=== PATIENT | male | born 1955 | race Caucasian/White ===

== ENCOUNTER 2021-08-05 00:19 | Inpatient (IN) | payer OTHER ==
--- OUTSIDE RECORDS SUMMARY | 2021-08-05 00:21 | XMS REPORT | Continuity of Care Document ---
:1955 Author Organization [facility] t Address [address] [place] [address] [address]. [address] [place] [address] Care Team Providers Name Role Phone MARTA Attending Clinician Unavailable Zay SANCHEZ Attending Clinician Lab, Fam Pob I Attending Clinician Unavailable Laurita MARIE Attending Clinician Unavailable Laurita MARIE Admitting Clinician Unavailable Payers Payer Name Policy Type Policy Number Effective Date Expiration Date Laverne MICHEL O [id number] 2018 00:00:00 Problems This patient has no known problems. Allergies, Adverse Reactions, Alerts Allergy Allergy Status Severity Reaction(s) Onset Inactive Treating Comm ents Source Name Type Date Date Clinician NO KNOWN Drug Active [facility] ALLERGIE Class [facility] Medications This patient has no known medications. Procedures This patient has no known procedures. Encounters Start End Encounter Admission Attending Care Care Encounter Source Date/Time Date/Time Type Type Clinicians Facility Department ID 2020-05-17 2020-05-17 Outpatient [facility] [id number] Univers 14:55:00 14:55:00 [facility] 2020-04-19 2020-04-19 Outpatient [facility] [id number] Univers 14:50:00 14:50:00 [facility] 2020-01-26 2020-01-26 Outpatient R [facility] [id number] Univers 12:40:00 12:40:00 [id number] [facility] 2020-01-26 2020-01-26 Outpatient R MARTA [facility] [id number] Univers 12:40:00 12:40:00 GRAY [facility] 2019-09-05 2019-09-05 Telephone Zay [facility] [id number] 00:00:00 00:00:00 [facility] [id number] [place] [id number] [facility] [id number] Primary & 370 Specialty Care 2019-09-04 2019-09-04 Laboratory Lab, [facility] [id number] 13:09:16 13:29:16 Only [facility]am [facility] [id number] [place] [id number] [facility] [id number] nal [address] 2019-09-04 2019-09-04 Outpatient R [facility] [id number] -[id number] Univers 13:20:00 13:20:00 [id number] ity [facility] 2019-09-04 2019-09-04 Outpatient R [facility] [id number] Univers 13:20:00 [facility]:20:[facility] 2018-12-27 2018-12-27 Outpatient R ALISHA MARIE [facility] [id number] Univers 07:07:42 23:59:00 [facility] Results This patient has no known results.
[2021-08-05 01:12] LABS: Absolute Lymphocytes (CBC) 5.5 K/uL (0.7-4.9); Hematocrit 48.2 % (39.6-49.0); Lymphocytes % 38.4 % (15.3-44.8); MPV 9.9 fL (7.6-11.3); RBC Red Blood Cell Count 5.05 M/uL (4.33-5.43)
[2021-08-05 01:27] LABS: Potassium 3.5 mmol/L (3.5-5.1); Troponin High Sensitivity 16.3 pg/mL (<58.9)
--- NOTE | 2021-08-05 03:13 | EDPHYS ---
Physician Documentation [facility] Name: Stevenson Marie Age: 65 yrs Sex: Male : 1955 Arrival Date: 08/05/2021 Time: 00:26 Bed 25 Private MD: ED Physician Romel Collins HPI: 08/05 07:43 This 65 yrs old Male presents to ER via EMS with complaints of Syncope. kdr 07:43 The patient has experienced syncope, became unresponsive, Patient had a syncopal kdr episode prior to arrival this morning. According to his , he was sitting talking with her when he suddenly sounds with his mouth and then his head went back and he was completely unresponsive. People who were around him began to perform sort of CPR while the patient was sitting. Patient then came back around and seemed confused and disoriented. Few minutes later the episode repeated itself that time EMS was called. Patient again recovered consciousness and has had no further problems. Onset: The symptoms/episode began/occurred suddenly, just prior to arrival. Duration: The patient has had multiple episodes, that last 45 second(s). Context: the episode(s) was witnessed, by family, occurred at home, occurred while the patient was at rest, sitting. Associated injury: The patient did not suffer any apparent associated injury. Associated signs and symptoms: The patient has no apparent associated signs or symptoms. Current symptoms: Currently, the patient is not experiencing any symptoms. The patient has not experienced similar symptoms in the past. The patient has not recently seen a physician. Historical: - Allergies: 00:29 No Known Allergies; sm5 - Home Meds: 00:29 nifedipine 60 mg Oral TbER 1 tab once daily for Hypertension [Active]; glipizide 5 mg sm5 Oral tab 1 tab 2 times per day [Active]; anastrozole 1 mg oral tab 0.5 tab once daily [Active]; Methylphenidate 63mg Oral [Active]; - PMHx: 00:29 CVA; Hypertension; sm5 - Immunization history:: Client reports receiving the 2nd dose of the Covid vaccine. - Social history:: Smoking status: Patient reports the use of cigarette tobacco products, denies chronic smoking, but will smoke occasionally, Patient uses alcohol. ROS: 07:43 Constitutional: Negative for fever, chills, and weight loss, Eyes: Negative for injury, kdr pain, redness, and discharge, Neck: Negative for injury, pain, and swelling, Cardiovascular: Negative for chest pain, palpitations, and edema, Respiratory: Negative for shortness of breath, cough, wheezing, and pleuritic chest pain, Abdomen/GI: Negative for abdominal pain, nausea, vomiting, diarrhea, and constipation, Back: Negative for injury and pain, : Negative for injury, bleeding, discharge, and swelling, MS/Extremity: Negative for injury and deformity, Skin: Negative for injury, rash, and discoloration, Psych: Negative for depression, anxiety, suicide ideation, homicidal ideation, and hallucinations, Allergy/Immunology: Negative for hives, rash, and allergies, Endocrine: Negative for neck swelling, polydipsia, polyuria, polyphagia, and marked weight changes, Hematologic/Lymphatic: Negative for swollen nodes, abnormal bleeding, and unusual bruising. 07:43 Neuro: Positive for loss of consciousness, syncope. Exam: 07:43 Constitutional: This is a well developed, well nourished patient who is awake, alert, kdr and in no acute distress. Head/Face: Normocephalic, atraumatic. Eyes: Pupils equal round and reactive to light, extra-ocular motions intact. Lids and lashes normal. Conjunctiva and sclera are non-icteric and not injected. Cornea within normal limits. Periorbital areas with no swelling, redness, or edema. Neck: Trachea midline, no thyromegaly or masses palpated, and no cervical lymphadenopathy. Supple, full range of motion without nuchal rigidity, or vertebral point tenderness. No Meningismus. Chest/axilla: Normal chest wall appearance and motion. Nontender with no deformity. No lesions are appreciated. Cardiovascular: Regular rate and rhythm with a normal S1 and S2. No gallops, murmurs, or rubs. Normal PMI, no JVD. No pulse deficits. Respiratory: Lungs have equal breath sounds bilaterally, clear to auscultation and percussion. No rales, rhonchi or wheezes noted. No increased work of breathing, no retractions or nasal flaring. Abdomen/GI: Soft, non-tender, with normal bowel sounds. No distension or tympany. No guarding or rebound. No evidence of tenderness throughout. Back: No spinal tenderness. No costovertebral tenderness. Full range of motion. Skin: Warm, dry with normal turgor. Normal color with no rashes, no lesions, and no evidence of cellulitis. MS/ Extremity: Pulses equal, no cyanosis. Neurovascular intact. Full, normal range of motion. Neuro: Awake and alert, GCS 15, oriented to person, place, time, and situation. Cranial nerves II-XII grossly intact. Motor strength 5/5 in all extremities. Sensory grossly intact. Cerebellar exam normal. Normal gait. Psych: Awake, alert, with orientation to person, place and time. Behavior, mood, and affect are within normal limits. Vital Signs: 00:27 BP 131 / 87; Pulse 91; Resp 20; Temp 98(O); Pulse Ox 98% on R/A; Weight 110.45 kg; [facility] Height 6 ft. 1 in. (185.42 cm); Pain 0/10; 00:48 BP 148 / 88; Pulse 86; Resp 17; Pulse Ox 99% on R/A; lp1 02:12 BP 141 / 83; Pulse 84; Resp 15; Pulse Ox 98% on R/A; lp1 03:45 BP 149 / 90; Pulse 77; Resp 17; Pulse Ox 95% on R/A; lp1 05:20 BP 128 / 74; Pulse 74; Resp 15; Pulse Ox 95% on R/A; lp1 06:00 BP 104 / 63; Pulse 75; Resp 14; Pulse Ox 94% on R/A; lp1 06:30 BP 115 / 66; Pulse 74; Resp 13; Pulse Ox 95% on R/A; lp1 00:27 Body Mass Index 32.13 (110.45 kg, 185.42 cm) [facility] MDM: 03:12 Patient medically screened. kdr 07:43 Data reviewed: vital signs, nurses notes, lab test result(s), radiologic studies. kdr Counseling: I had a detailed discussion with the patient and/or guardian regarding: the historical points, exam findings, and any diagnostic results supporting the discharge/admit diagnosis, lab results, radiology results, the need for outpatient follow up. 08/05 00:38 Order name: Basic Metabolic Panel; Complete Time: 02:11 kdr 08/05 00:38 Order name: CBC with Diff; Complete Time: 02:11 kdr 08/05 00:38 Order name: Troponin HS; Complete Time: 02: kdr 08/05 00:43 Order name: ETOH Level; Complete Time: 02:11 as6 08/05 00:50 Order name: COVID-19 SARS RT PCR (Document "Date of Onset" if Symptomatic); Complete as6 Time: 08:16 08/05 00:50 Order name: Flu; Complete Time: 08:16 as6 08/05 08:22 Order name: Glucose, Ancillary Testing EDMT 08/05 08:58 Order name: Creatine Phosphokinase EDMT 08/05 08:58 Order name: Troponin High Sensitivity EDMT 08/05 08:58 Order name: T4 Free EDMT 08/05 08:58 Order name: Thyroid Stimulating Hormone EDMT 08/05 12:52 Order name: Glucose, Ancillary Testing EDMT 08/05 14:10 Order name: CBC without Diff EDMT 08/05 14:49 Order name: Troponin High Sensitivity EDMT 08/05 00:38 Order name: XRAY Chest (1 view) kdr 08/05 00:38 Order name: EKG; Complete Time: 00:39 kdr 08/05 00:38 Order name: Cardiac monitoring; Complete Time: 00:48 kdr 08/05 00:38 Order name: EKG - Nurse/Tech; Complete Time: 00:48 kdr 08/05 00:38 Order name: IV Saline Lock; Complete Time: 00:48 kdr 08/05 00:38 Order name: Labs collected and sent; Complete Time: 00:48 kdr 08/05 00:38 Order name: O2 Per Protocol; Complete Time: 00:48 kdr 08/05 00:38 Order name: O2 Sat Monitoring; Complete Time: 00:48 kdr 08/05 00:39 Order name: CT Head C Spine kdr 08/05 16:08 Order name: Glucose, Ancillary Testing [facility] 08/05 20:02 Order name: Troponin High Sensitivity EDMT 08/05 21:01 Order name: Glucose, Ancillary Testing EDMT Administered Medications: No medications were administered Disposition Summary: 08/05/21 03:12 Hospitalization Ordered Hospitalization Status: Observation kdr Provider: David Valera Condition: Fair kdr Problem: new kdr Symptoms: have improved kdr Bed/Room Type: Standard kdr Location: Telemetry/MedSurg (observation)(08/05/21 21:42) cg Room Assignment: [facility](08/05/21 21:42) cg Diagnosis - Syncope kdr Forms: - Medication Reconciliation Form kdr - SBAR form kdr Signatures: Dispatcher [employer] EDAlbertina Giraldo RN RN mw Rittger, Kevin, MD MD kdr Garcia, Cindy, RN RN Sejal Heath RN RN sm5 Corrections: (The following items were deleted from the chart) 05: 03:12 Telemetry/MedSurg (observation) kdr 05:26 03:12 kdr 21:42 05:26 [facility] ER HOLD [facility] 21:42 05:26 ERHOLD- [facility]
--- NOTE | 2021-08-05 03:13 | ER ---
Nurse's Notes [facility] Name: Stevenson Marie Age: 65 yrs Sex: Male : 1955 Arrival Date: 08/05/2021 Time: 00:26 Bed 25 Private MD: Diagnosis: Syncope Presentation: 08/05 00:27 Chief complaint: EMS states: pt had a syncopal episode outside lasting 5 mins. denies sm5 falling. pt spent the day outside by the pool drinking wine. Coronavirus screen: Vaccine status: Patient reports receiving the 2nd dose of the covid vaccine. Ebola Screen: No symptoms or risks identified at this time. Initial Sepsis Screen: Does the patient meet any 2 criteria? No. Patient's initial sepsis screen is negative. Does the patient have a suspected source of infection? No. Patient's initial sepsis screen is negative. Risk Assessment: Do you want to hurt yourself or someone else? Patient reports no desire to harm self or others. Onset of symptoms was August 05, 2021. 00:27 Method Of Arrival: EMS: [place] [id number] 00:27 Acuity: ARLENE 3 5 Triage Assessment: 00:31 General: Appears in no apparent distress. Behavior is appropriate for age. Pain: Denies sm5 pain. Neuro: No deficits noted. Pa Agitation-Sedation Scale (RASS): 0 - Alert and Calm Level of Consciousness is awake, alert, obeys commands, Oriented to person, place, time, situation. Cardiovascular: No deficits noted. Capillary refill < 3 seconds Patient's skin is warm and dry. Respiratory: No deficits noted. Airway is patent Trachea midline Respiratory effort is even, unlabored. GI: Reports nausea. Historical: - Allergies: 00:29 No Known Allergies; sm5 - Home Meds: 00:29 nifedipine 60 mg Oral TbER 1 tab once daily for Hypertension [Active]; glipizide 5 mg sm5 Oral tab 1 tab 2 times per day [Active]; anastrozole 1 mg oral tab 0.5 tab once daily [Active]; Methylphenidate 63mg Oral [Active]; - PMHx: 00:29 CVA; Hypertension; sm5 - Immunization history:: Client reports receiving the 2nd dose of the Covid vaccine. - Social history:: Smoking status: Patient reports the use of cigarette tobacco products, denies chronic smoking, but will smoke occasionally, Patient uses alcohol. Screenin:32 Abuse screen: Denies threats or abuse. Denies injuries from another. Nutritional sm5 screening: No deficits noted. Tuberculosis screening: No symptoms or risk factors identified. Fall Risk IV access (20 points). Mental Status- Overestimates/Forgets Limitations (15 pts.). Total Agosto Fall Scale indicates Low Risk Score (25-44 pts). Fall prevention measures have been instituted. Side Rails Up X 2 Placed close to Nursing Station Frequent Obs/Assesments occuring. Assessment: 01:17 Reassessment: Patient to CT, at bedside. lp1 02:11 Reassessment: at bedside. General: Appears in no apparent distress. Behavior is lp1 calm, cooperative. Pain: Denies pain. Neuro: Level of Consciousness is awake, alert, obeys commands. Cardiovascular: Patient's skin is warm and dry. Rhythm is regular. Respiratory: Respiratory effort is even, unlabored. GI: No signs and/or symptoms were reported involving the gastrointestinal system. : No signs and/or symptoms were reported regarding the genitourinary system. EENT: No signs and/or symptoms were reported regarding the EENT system. Derm: Skin is intact, Skin is dry, Skin is normal. Musculoskeletal: No deficits noted. 03:30 Reassessment: Patient appears in no apparent distress at this time. Patient and/or lp1 family updated on plan of care and expected duration. Pain level reassessed. Patient is alert, oriented x 3, equal unlabored respirations, skin warm/dry/pink. Patient states feeling better. 21:57 Reassessment: Report given to Scooter TORRES Rm 402. ag7 Vital Signs: 00:27 BP 131 / 87; Pulse 91; Resp 20; Temp 98(O); Pulse Ox 98% on R/A; Weight 110.45 kg; sm5 Height 6 ft. 1 in. (185.42 cm); Pain 0/10; 00:48 BP 148 / 88; Pulse 86; Resp 17; Pulse Ox 99% on R/A; lp1 02:12 BP 141 / 83; Pulse 84; Resp 15; Pulse Ox 98% on R/A; lp1 03:45 BP 149 / 90; Pulse 77; Resp 17; Pulse Ox 95% on R/A; lp1 05:20 BP 128 / 74; Pulse 74; Resp 15; Pulse Ox 95% on R/A; lp1 06:00 BP 104 / 63; Pulse 75; Resp 14; Pulse Ox 94% on R/A; lp1 06:30 BP 115 / 66; Pulse 74; Resp 13; Pulse Ox 95% on R/A; lp1 00:27 Body Mass Index 32.13 (110.45 kg, 185.42 cm) sm5 ED Course: 00:26 Patient arrived in ED. as6 00:27 Sejal Heath, RN is Primary Nurse. sm5 00:29 Triage completed. sm5 00:32 Arm band placed on right wrist. sm5 00:32 Patient has correct armband on for positive identification. Placed in gown. Bed in low sm5 position. Call light in reach. Side rails up X2. Client placed on continuous cardiac and pulse oximetry monitoring. NIBP monitoring applied. 00:38 Romel Collins MD is Attending Physician. kdr 00:47 Initial lab(s) drawn, by me, sent to lab. Maintain EMS IV. Dressing intact. Good blood lp1 return noted. Site clean \T\ dry. Gauge \T\ site: 18 g to R hand. 00:59 XRAY Chest (1 view) In Process Unspecified. EDMS 01:33 CT Head C Spine In Process Unspecified. EDMS 03:12 David Valera MD is Hospitalizing Provider. kdr 04:00 No provider procedures requiring assistance completed. Patient admitted, IV remains in lp1 place. 08:17 Primary Nurse role handed off by Sejal Heath RN jl7 08:17 Luz Chen RN is Primary Nurse. jl7 09:00 role handed off by Dolly Sherman RN bd Administered Medications: No medications were administered Medication: 00:48 VIS not applicable for this client. lp1 Outcome: 03:12 Decision to Hospitalize by Provider. kdr 04:00 Condition: stable lp1 04:00 Instructed on the need for admit. 06:15 Admitted to ER Hold. Please see [facility] for further documentation. lp1 21:59 Patient left the ED. ag7 Signatures: Dispatcher [employer] EDMS Jessica Flores Kevin, MD MD kdr Dolly Sherman, RN RN lp1 Luz Chen, RN RN jl7 Jani Perez, RN RN as6 Sejal Heath, RN RN sm5 Valentina Carpenter, RN RN ag7 Corrections: (The following items were deleted from the chart) 21:58 21:57 Reassessment: Report given to Scooter TORRES ag7 ag7 21:59 21:57 Reassessment: Report given to Scooter TORRES 404 ag7 ag7
--- NOTE | 2021-08-05 03:57 | P.HP ---
Certification for Inpatient Patient admitted to: Observation With expected LOS: <2 Midnights Patient will require the following post-hospital care: None Practitioner: I am a practitioner with admitting privileges, knowledge of patient current condition, hospital course, and medical plan of care. Services: Services provided to patient in accordance with Admission requirements found in Title 42 Section 412.3 of the Code of Federal Regulations Patient History Date of Service: 08/05/21 Reason for admission: Syncope History of Present Illness: 65-year-old male with history of hypertension, ADD, TIA, diabetes mellitus type 2 presents emergency department for syncopal event. Patient was at home with his and family having a few glasses of wine when he had a syncopal episode with loss of consciousness that lasted between 15 and 20 seconds. Patient reports feeling very weak prior to onset but denied any chest pain, palpitations, headache or other symptoms he became diaphoretic and slumped over family attempted some chest compressions in seated position he recovered and by time EMS arrived had another episode lasting another 15 to 20 seconds. Bystanders on scene reportedly could not locate radial pulse during episode. Patient was evaluated emergency department with CT head was negative for acute findings his labs were remarkable for mild leukocytosis elevated alcohol level and renal insufficiency EKG demonstrated right bundle branch block which is not new. Patient does take stimulant for ADD and did take a dose today. ED provider wishes to admit under observation for syncope evaluation. Allergies No Known Allergies Allergy (Unverified 09/16/15 16:34) Home Medications: Clopidogrel Bisulfate [Plavix*] 75 mg PO DAILY 09/16/15 Metoprolol Tartrate [Lopressor] 100 mg PO DAILY 09/16/15 NIFEdipine [Adalat cc] 90 mg PO DAILY 09/16/15 - Past Medical/Surgical History Diabetic: No -: cva -: HTN -: ADD -: knee surgery Psychosocial/ Personal History: Patient lives at home with family - Family History Mother -: Diabetes Father -: Hypertension - Social History Smoking Status: Current some day smoker Alcohol use: No CD- Drugs: No Caffeine use: Yes Place of Residence: Home Review of Systems 10-point ROS is otherwise unremarkable Cardiovascular: Other (Syncope) Physical Examination - Physical Exam General: Alert, In no apparent distress, Oriented x3 HEENT: Atraumatic, PERRLA, Mucous membr. moist/pink, EOMI, Sclerae nonicteric Neck: Supple, 2+ carotid pulse no bruit, No LAD, Without JVD or thyroid abnormality Respiratory: Clear to auscultation bilaterally, Normal air movement Cardiovascular: Regular rate/rhythm, Normal S1 S2 Capillary refill: <2 Seconds Gastrointestinal: Normal bowel sounds, No tenderness Musculoskeletal: No tenderness Integumentary: No rashes Neurological: Normal speech, Normal strength at 5/5 x4 extr, Normal tone, Normal affect - Studies Laboratory Data (last 24 hrs) 08/05/21 00:40: WBC 14.4 H, Hgb 16.4, Hct 48.2, Plt Count 253 08/05/21 00:40: Sodium 141, Potassium 3.5, BUN 16, Creatinine 1.39 H, Glucose 123 H Assessment and Plan - Plan Assessment: Syncope Hypertension Diabetes type 2not insulin-dependent ADD/ADHD Plan: Syncope: Unknown etiology syncope with loss of consciousness bystanders reportedly could not palpate radial pulse during episode patient did become diaphoretic and extremely weak prior to losing consciousness had multiple episodes in seated position. Cardiology consulted, echocardiogram ordered monitor on telemetry patient does take stimulant medication as prescribed which does increase risk for arrhythmia. Appreciate further input from cardiology also obtain orthostatic vital signs, trend troponins gather CPK and UDS. Hypertension: Continue home medications adjust as necessary Diabetes type 2not insulin-dependent: ACH S Accu-Chek, sliding scale son ADD/ADHD: Hold stimulant medication. DVT PPX: Lovenox Code status: Full Discharge Plan: Home Plan to discharge in: 24 Hours - Advance Directives Does patient have a Living Will: No Does patient have a Durable POA for Healthcare: No - Code Status/Comfort Care Code Status Assessed: Yes (Full code) Critical Care: No Time Spent Managing Pts Care (In Minutes): 55
[2021-08-05] MEDS ORDERED: ONDANSETRON 4 MG/2 ML VIAL IV PRN (05:28)
[2021-08-05] MEDS: INSULIN -REGULAR HUMAN 50 UNIT/0.5 ML ML SQ SCH ×4 (07:30→21:00)
[2021-08-05] MEDS ORDERED: ENOXAPARIN 40 MG/0.4 ML SQ ONE (08:43)
[2021-08-05 08:51] LABS: Thyroid Stimulating Hormone 1.24 uIU/mL (0.360-3.740)
[2021-08-05 08:58] LABS: Troponin High Sensitivity 1346.1 pg/mL (<58.9)
[2021-08-05] MEDS ORDERED: ENOXAPARIN 40 MG/0.4 ML SQ SCH (09:00)
[2021-08-05] MEDS ORDERED: KCL 20 MEQ/100 mL IVPB 20 MEQ/100 ML BAG IV SCH (12:00)
--- NOTE | 2021-08-05 12:32 | EKG ---
Test Date: 2021-08-05 Test Time: 00:32:29 Tank Maker Wood: ALICIA MEASUREMENT RESULTS: Intervals: Rate: 87 WA: 164 QRSD: 164 QT: 406 QTc: [address]: P: 66 WA: 164 QRS: 23 T: 32 INTERPRETIVE STATEMENTS: Normal sinus rhythm Right bundle branch block Abnormal ECG Compared to ECG 05/06/2021 09:33:33 No significant changes Electronically Signed On 08-05-21 12:31:31 CDT by Gentry Ortega
--- NOTE | 2021-08-05 12:50 | P.DS ---
Admission Date: 08/05/21 Discharge Date: 08/05/21 Disposition: ROUTINE DISCHARGE Discharge Condition: FAIR Reason for Admission: Syncope Brief History of Present Illness: Reason for admission: Syncope History of Present Illness: 65-year-old male with history of hypertension, ADD, TIA, diabetes mellitus type 2 presents emergency department for syncopal event. Patient was at home with his and family having a few glasses of wine when he had a syncopal episode with loss of consciousness that lasted between 15 and 20 seconds. Patient reports feeling very weak prior to onset but denied any chest pain, palpitations, headache or other symptoms he became diaphoretic and slumped over family attempted some chest compressions in seated position he recovered and by time EMS arrived had another episode lasting another 15 to 20 seconds. Bystanders on scene reportedly could not locate radial pulse during episode. Patient was evaluated emergency department with CT head was negative for acute findings his labs were remarkable for mild leukocytosis elevated alcohol level and renal insufficiency EKG demonstrated right bundle branch block which is not new. Patient does take stimulant for ADD and did take a dose today. ED provider wishes to admit under observation for syncope evaluation. Allergies No Known Allergies Allergy (Unverified 09/16/15 16:34) Home Medications: Clopidogrel Bisulfate [Plavix*] 75 mg PO DAILY 09/16/15 Metoprolol Tartrate [Lopressor] 100 mg PO DAILY 09/16/15 NIFEdipine [Adalat cc] 90 mg PO DAILY 09/16/15 - Past Medical/Surgical History Diabetic: No -: cva -: HTN -: ADD -: knee surgery Hospital Course: Hospital course Patient was admitted for syncope with unclear loss of pulsation. On admission he was placed on telemetry. No arrhythmia was noted on telemetry. His blood pressure remained stable. He was ruled out with negative set of cardiac enzymes. Cardiology consult was obtained and patient was felt to benefit from event monitor as well as outpatient stress test. Since patient is currently stable he will be discharged home today to follow-up with cardiology Dr. Alarcon in 3-5 days for the event monitor - Physical Exam General: Alert, In no apparent distress, Oriented x3 HEENT: Atraumatic, PERRLA, Mucous membr. moist/pink, EOMI, Sclerae nonicteric Neck: Supple, 2+ carotid pulse no bruit, No LAD, Without JVD or thyroid abnormality Respiratory: Clear to auscultation bilaterally, Normal air movement Cardiovascular: Regular rate/rhythm, Normal S1 S2 Capillary refill: <2 Seconds Gastrointestinal: Normal bowel sounds, No tenderness Musculoskeletal: No tenderness Integumentary: No rashes Neurological: Normal speech, Normal strength at 5/5 x4 extr, Normal tone, Normal affect Vital Signs/Physical Exam: Temp Pulse Resp BP Pulse Ox 97.3 F 69 15 133/81 95 08/05/21 08:00 08/05/21 08:00 08/05/21 08:00 08/05/21 08:00 08/05/21 08:00 Laboratory Data at Discharge: WBC 14.4 K/uL (4.3-10.9) H 08/05/21 00:40 Hgb 16.4 g/dL (13.6-17.9) 08/05/21 00:40 Hct 48.2 % (39.6-49.0) 08/05/21 00:40 Plt Count 253 K/uL (152-406) 08/05/21 00:40 Sodium 141 mmol/L (136-145) 08/05/21 00:40 Potassium 3.5 mmol/L (3.5-5.1) 08/05/21 00:40 BUN 16 mg/dL (7-18) 08/05/21 00:40 Creatinine 1.39 mg/dL (0.55-1.3) H 08/05/21 00:40 Glucose 123 mg/dL (74-106) H 08/05/21 00:40 Home Medications: NIFEdipine [Adalat cc] 90 mg PO DAILY 09/16/15 Anastrozole 0.5 mg PO DAILY 08/05/21 Glipizide [Glipizide Xl] 5 mg PO BID 08/05/21 Methylphenidate HCl [Methylphenidate ER] 27 mg PO DAILY 08/05/21 Diet: ADA Activity: Ad nisa Followup: Ruddy Trejo DO [Primary Care Provider] - Time spent managing pt's care (in minutes): 35
[2021-08-05] MEDS ORDERED: POTASSIUM 25 MEQ EFFERV TAB ONE (12:56)
[2021-08-05] MEDS ORDERED: POTASSIUM 25 MEQ EFFERV TAB PO ONE (12:57)
--- NOTE | 2021-08-05 13:05 | ECHO ---
HEIGHT: 6 ft 1 in WEIGHT: 242 lb 8 oz DATE OF STUDY: 08/05/[address]: Ethan Beard NP 2-DIMENSIONAL: YES M.MODE: YES DOPPLER: YES COLOR FLOW: YES TDS: YES PORTABLE: YES DEFINITY: BUBBLE STUDY: DIAGNOSIS: SYNCOPE, RIGHT BUNDLE BRANCH BLOCK CARDIAC HISTORY: CATHERIZATION: NO SURGERY: NO PROSTHETIC VALVE: NO PACEMAKER: NO MEASUREMENTS (cm) DIASTOLIC (NORMALS) SYSTOLIC (NORMALS) IVSd 1.0 (0.6-1.2) LA Diam 3.0 (1.9-4.0) LVEF 70% LVIDd 4.1 (3.5-5.7) LVIDs 2.5 (2.0-3.5) %FS 39% LVPWd 1.1 (0.6-1.2) Ao Diam 2.6 (2.0-3.7) 2 DIMENSIONAL ASSESSMENT: RIGHT ATRIUM: NORMAL LEFT ATRIUM: NORMAL RIGHT VENTRICLE: NORMAL LEFT VENTRICLE: NORMAL TRICUSPID VALVE: NORMAL MITRAL VALVE: NORMAL PULMONIC VALVE: NORMAL AORTIC VALVE: NORMAL PERICARDIAL EFFUSION: NONE AORTIC ROOT: NORMAL LEFT VENTRICULAR WALL MOTION: DOPPLER/COLOR FLOW: COMMENTS: NORMAL 2-DIMENSIONAL ECHOCARDIOGRAM WITH DOPPLER. NO WALL MOTION ABNORMALITY. NO EFFUSION. TECHNOLOGIST: CADEN ASKEW
--- NOTE | 2021-08-05 14:07 | RAD REPORT ---
EXAM DESCRIPTION: CT - Head C Spine Mpr Wo Con - 08/05/2021 6:21 am CLINICAL HISTORY: 65 years, Male, Syncope COMPARISON: 09/16/2015. FINDINGS: Multiple transaxial tomograms of the brain were obtained from the base of the skull to the vertex without contrast. 2-D multiplanar reformats and the coronal and sagittal plane were performed and reviewed. Multiple axial CT images through the cervical spine were obtained at 2 mm slice thickness at 2 mm int erval reconstruction. In addition 2-D multiplanar reformats and the sagittal coronal plane were perfo rmed and reviewed. This exam was performed according to our departmental dose-optimization protocol, which includes auto mated exposure control, adjustment of the mA and/or kV according to patient size and/or use of iterat leanne reconstruction technique. CT head: Brain parenchyma as well as the barker and white matter differentiation demonstrate to be unre markable. There is no midline shift and/or mass effect. There is no evidence for acute hemorrhage and /or infarction. Lateral ventricles and cisterns displace normal appearance. No intra or extra axi al fluid collections were seen. The calvarium is intact with no evidence for fracture. The visualized portions of the paranasal sinuses and orbits demonstrate to be clear. CT C-spine: The alignment of vertebral bodies are normal. There is no evidence of fracture or sublu xation. There is minimal calcification of the transverse ligament/anterior arch of C1 and dens. There is degenerative disc disease with decreased intervertebral disc height, anterior spondylosis and pos terior osteophyte complex at C5/C6 and C6/C7. The spinal canal demonstrate no evidence for significan t stenosis. Neural foramina demonstrate to be unremarkable. There are uncovertebral degenerative horne ges at C3-T1. There is no prevertebral soft tissue swelling. Visualized portions of the lung apices d emonstrate to be unremarkable. Sagittal coronal reformatted images demonstrate no subluxation or bony abnormalities. IMPRESSION: No evidence for acute hemorrhage. Degenerative disc disease at C5/C6 and C6/C7. Electronically signed by: Fabricio Barrios MD 08/05/2021 2:05 AM CDT Due to temporary technical issues with the PACS/Fluency reporting system, reports are being signed by the in house radiologists without review as a courtesy to insure prompt reporting. The interpreting radiologist is fully responsible for the content of the report.
[2021-08-05 14:09] LABS: Hematocrit 49.5 % (39.6-49.0); MPV 9.2 fL (7.6-11.3)
[2021-08-05] MEDS: LORAZEPAM 1 MG TABLET PO PRN (17:17)
[2021-08-05] MEDS: NIFEDIPINE XL 90 MG TABLET PO SCH (17:17)
[2021-08-05] MEDS ORDERED: LORAZEPAM 1 MG TABLET ONE (17:21)
--- NOTE | 2021-08-05 18:00 | RAD REPORT ---
EXAM DESCRIPTION: RAD - Chest Single View - 08/05/2021 12:57 am CLINICAL HISTORY: Syncope COMPARISON: None. TECHNIQUE: XR CHEST 1 VIEW 08/05/2021 12:38 AM CDT FINDINGS: The heart is mildly enlarged. Lungs are clear without consolidation, atelectasis, mass or edema. There is no pleural effusion. There is no pneumothorax. There are no acute osseous findings. IMPRESSION: Clear lungs. Electronically signed by: Ivan Vicente MD 08/05/2021 1:12 AM CDT Due to temporary technical issues with the PACS/Fluency reporting system, reports are being signed by the in house radiologists without review as a courtesy to insure prompt reporting. The interpreting radiologist is fully responsible for the content of the report.
[2021-08-05] MEDS ORDERED: ENOXAPARIN 100 MG/ML SYR SQ ONE (18:49)
[2021-08-05] MEDS: ZOLPIDEM TARTRATE 10 MG TABLET PO PRN (21:11)
[2021-08-05] MEDS ORDERED: ZOLPIDEM TARTRATE 5 MG TABLET ONE (21:14)
[2021-08-05 23:20] VITALS: BMI 32.5
[2021-08-06 03:59] LABS: Absolute Lymphocytes (CBC) 3.4 K/uL (0.7-4.9); Hematocrit 49.1 % (39.6-49.0); Lymphocytes % 33.3 % (15.3-44.8); MPV 9.7 fL (7.6-11.3); RBC Red Blood Cell Count 5.04 M/uL (4.33-5.43)
[2021-08-06 04:24] LABS: Albumin 3.1 g/dL (3.4-5.0); Bilirubin Total 0.5 mg/dL (0.2-1.0); Potassium 3.3 mmol/L (3.5-5.1); Protein, Total 6.5 g/dL (6.4-8.2)
[2021-08-06 07:29] LABS: Protime INR 1.03
[2021-08-06] MEDS: INSULIN -REGULAR HUMAN 50 UNIT/0.5 ML ML SQ SCH ×4 (07:30→20:32)
--- NOTE | 2021-08-06 07:34 | CON ---
Date of Consultation: 08/05/2021 Reason For Consultation: Syncope and elevated troponin. History Of Present Illness: Mr. Marie is 65, has a history of hypertension, for which he takes n ifedipine, beta-blockers, and Plavix. Has a history of CVA. He was recently placed on ; I do not know the details on that. Apparently, he was sitting down when he had a syncopal episode. H is tells me that he has been pulseless, but by the time the EMT arrived, he was in normal rhythm and he was asymptomatic. Prior to the syncopal episode, he did not have any chest pain or nausea or vomiting or diaphoresis. Denied any PND, orthopnea, pedal edema, or palpitation. He just did not f eel well. Troponin initially was normal and then it went up to over 1000. Echocardiogram was normal . Past Medical History: As stated above. Allergies: NONE. Review of Systems: Negative. Social History: Negative. Family History: Negative. Medications: As listed earlier. Physical Examination: General: He is asymptomatic, sinus rhythm. Vital Signs: Stable, afebrile. HEENT: Negative. Neck: Supple with no bruit. Chest: Clear. Cardiac: Revealed a regular rhythm and rate. No murmurs, gallops, or rubs. Abdomen: Benign. Extremities: Revealed no clubbing, cyanosis, or edema. Diagnostic Data: As stated earlier. Impression And Plan: 1.Syncope with non-ST elevation myocardial infarction by enzymes. Normal echo. Apparently, we will continue with Plavix, beta-blockers, nifedipine, glipizide. 2.He has had a history of hypertension and cerebrovascular accident in the past as well as diabetes. . Plan for heart catheterization in the morning to define his coronary anatomy. The patient understand s the risks and benefits of the procedure, and he agreed to proceed. APURVA/DISHA Voice ID: [id number] Report ID: [id number]
--- NOTE | 2021-08-06 07:36 | P.PN ---
Subjective Date of Service: 08/06/21 Chief Complaint: Syncope Subjective: No new changes, No C/O voiced Physical Examination - Vital Signs Temperature: 98.2 F Blood Pressure: 154/90 Pulse: 77 Respirations: 16 Pulse Ox (%): 94 - Physical Exam General: Alert, In no apparent distress, Oriented x3 HEENT: Atraumatic, Normocephalic Neck: 2+ carotid pulse no bruit, JVD not distended Respiratory: Clear to auscultation bilaterally, Normal air movement Cardiovascular: Normal pulses, Regular rate/rhythm, Normal S1 S2 Gastrointestinal: Normal bowel sounds, Soft and benign, Non-distended Integumentary: No breakdown, No significant lesion Neurological: Normal speech, Normal strength at 5/5 x4 extr - Studies Microbiology Data (last 24 hrs): 08/05/21 06:25 Nasopharnyx Influenza Type A Antigen Screen - Final 08/05/21 06:25 Nasopharnyx Influenza Type B Antigen Screen - Final Assessment And Plan Physician Review: Patient Assessed, Agree with Above Assessment and Plan Physician Review Additional Text: Impression NSTEMI - with prior chest pain Syncope Hypertension Diabetes type 2not insulin-dependent ADD/ADHD: Hold stimulant medication. PLAN - follow plan for cardiac cath today DVT PPX: Lovenox Code status: Full Discharge Plan: Home Plan to discharge in: 24 Hours - Advance Directives Does patient have a Living Will: No Does patient have a Durable POA for Healthcare: No Time Spent Managing PTS Care (In Minutes): 30
[2021-08-06] MEDS: POTASSIUM CL 40 MEQ in NA CHLORIDE 0.9% 500 ML IV SCH ×2 (08:00→08:48)
[2021-08-06] MEDS: NIFEDIPINE XL 90 MG TABLET PO SCH (08:48)
[2021-08-06] MEDS ORDERED: NA CHLORIDE 0.9% 500 ML ONE (11:28)
[2021-08-06] MEDS ORDERED: HEPA 1000U/500MLS 2,000 UNIT/1,000 ML BAG IV ONE (11:29)
[2021-08-06 12:18] LABS: Urine Bilirubin Negative (Negative); Urine Blood Negative (Negative); Urine Color Yellow (Yellow); Urine Glucose Negative (Negative); Urine Protein Negative (Negative); Urine Urobilinogen 0.2 mg/dL (0.2-1.0); Urine pH 7.5 (5.0-7.0)
[2021-08-06 12:25] LABS: Urine Appearance HAZY (Clear); Urine Microscopic Reflex ORDER UMIC
[2021-08-06 12:43] LABS: Urine Amorphous Sediment 3+ /HPF (NONE SEEN); Urine Bacteria 20-50 /HPF (NONE SEEN); Urine RBC NONE SEEN /HPF (NONE SEEN)
[2021-08-06] MEDS ORDERED: FENTANYL CITR 100 MCG/2 ML ONE ×2 (12:56→14:12)
[2021-08-06] MEDS ORDERED: VERAPAMIL HCL 10 MG/4 ML VIAL IV ONE (12:56)
[2021-08-06] MEDS ORDERED: HEPARIN 5000 UNIT/ML 1 ML VIAL ONE (12:56)
[2021-08-06] MEDS ORDERED: MIDAZOLAM HCL 2 MG/2 ML INJ ONE ×2 (12:56→13:33)
[2021-08-06] MEDS ORDERED: ATROPINE SULF 1 MG/10 ML SYR IV ONE (12:57)
[2021-08-06] MEDS ORDERED: HEPARIN 10,000 UNIT/10 ML VIAL IV ONE ×2 (12:57→13:41)
[2021-08-06] MEDS ORDERED: NITROGLYCERIN 100 MCG/ML SYR (for cath lab use only) IV ONE (12:57)
[2021-08-06] MEDS ORDERED: LIDOCAINE 1% MPF 2 ML AMPULE ONE ×2 (13:12→13:36)
[2021-08-06] MEDS ORDERED: TICAGRELOR 90 MG TABLET PO ONE (13:45)
[2021-08-06] MEDS ORDERED: ASPIRIN 325 MG TAB ONE (13:45)
[2021-08-06 14:17] LABS: Barbiturates NEGATIVE (NEGATIVE); Benzodiazepines NEGATIVE (NEGATIVE); Cocaine NEGATIVE (NEGATIVE); METHAMPHETAM NEGATIVE (NEGATIVE); Methadone NEGATIVE (NEGATIVE); Opiates NEGATIVE (NEGATIVE); Phencyclidine NEGATIVE (NEGATIVE); THC Cannibis POSITIVE (NEGATIVE)
[2021-08-06] MEDS ORDERED: ADENOSINE 6 MG/ 2ML VIAL IV ONE (14:31)
[2021-08-06] MEDS ORDERED: MORPHINE 4 MG/ML SYR ONE (14:35)
[2021-08-06] MEDS ORDERED: NITROGLYCERIN 0.4 MG/TAB SL ONE (14:42)
--- NOTE | 2021-08-06 14:50 | P.PN ---
Subjective Date of Service: 08/06/21 Chief Complaint: Syncope Subjective: No new changes (Complain of anxiety Scheduled for cardiac cath today) Physical Examination - Vital Signs Temperature: 97.6 F Blood Pressure: 120/66 Pulse: 72 Respirations: 18 Pulse Ox (%): 98 Assessment And Plan Physician Review: Patient Assessed, Agree with Above Assessment and Plan Physician Review Additional Text: - Physical Exam General: Alert, In no apparent distress, Oriented x3 HEENT: Atraumatic, Normocephalic Neck: 2+ carotid pulse no bruit, JVD not distended Respiratory: Clear to auscultation bilaterally, Normal air movement Cardiovascular: Normal pulses, Regular rate/rhythm, Normal S1 S2 Gastrointestinal: Normal bowel sounds, Soft and benign, Non-distended Integumentary: No breakdown, No significant lesion Neurological: Normal speech, Normal strength at 5/5 x4 extr - Studies EchocardiogramEF of 70%, normal valvular function Assessment And Plan Physician Review: Patient Assessed, Agree with Above Assessment and Plan Physician Review Additional Text: Impression NSTEMI - with prior chest pain Syncope with pulselessness Hypertension Remote history of CVA Diabetes type 2not insulin-dependent ADD/ADHD: Hold stimulant medication. PLAN follow plan for cardiac cath today Continue blood pressure control Continue low-dose Lovenox DVT PPX: Lovenox Code status: Full Discharge Plan: Home Plan to discharge in: 24 Hours
[2021-08-06] MEDS ORDERED: METOPROLOL TARTRATE 5 MG/5 ML INJ IV ONE (14:59)
[2021-08-06] MEDS ORDERED: NA CHLORIDE 0.9% 0 ML ONE (15:02)
[2021-08-06] MEDS ORDERED: HEPA 1000U/500MLS 1,000 UNIT/500 ML BAG IV ONE (16:01)
[2021-08-06] MEDS: NACHLORIDE 0.45% 1,000 ML IV SCH (16:41)
[2021-08-06] MEDS: LORAZEPAM 1 MG TABLET PO PRN ×2 (16:46→22:56)
[2021-08-06] MEDS ORDERED: POTASSIUM CL SA 10 MEQ TAB PO ONE (17:00)
[2021-08-06] MEDS: TICAGRELOR 90 MG TABLET PO SCH (20:39)
[2021-08-06] MEDS: ZOLPIDEM TARTRATE 10 MG TABLET PO PRN (21:08)
--- NOTE | 2021-08-06 23:04 | OP ---
Date of Procedure: 08/06/2021 Surgeon: JESSY PARISI Procedures Performed: 1.Selective coronary angiogram. 2.Left heart catheterization. 3.IVUS of LAD. 4.PCI of severe mid OM1 stenosis, that is the culprit 99%, used 2.5 x 12 mm Synergy drug-eluting andi nt. 5.PCI of mid LAD using a 3.0 x 38 mm Synergy drug-eluting stent and distally another 3.0 x 16 mm Syn ergy drug-eluting stent overlapped together. Indication: Non-ST elevation myocardial infarction. Access: Right femoral artery 6-Greek closed with 6-Greek Angio-Seal. Complications: None. Estimated Blood Loss: Bleeding less than 20 mL. Anesthesia: Total sedation time was 95 minutes. Description Of Procedure: After risks, benefits, alternatives were explained, the patient agreed to procedure and signed informed consent. The patient was brought in the cardiac catheterization labora tory, prepped and draped in sterile fashion and we accessed the right femoral artery as the right rad ial artery was very small. Using ultrasound guidance micropuncture kit and fluoroscopy, placed a 6-F rench [place] sheath and took a 6-Greek JL4 catheter into the aortic root and engaged left main, to ok standard views and exchanged for a 6-Greek JR4 catheter and engaged the RCA and took standard vie ws and then catheter was pushed to the LV, took LVEDP and pullback not requiring gradient. Then move d to the interventional part. Intervention Details: We gave 180 of Brilinta, 325 of aspirin and systemic heparin to assure ACT lev el above 250 and took a 6-Greek XB 3.5 left guide into the aortic root, engaged left main, took shor t Runthrough wire through the left circumflex into the OM branch and re-dilated the lesion and placed a 2.5 x 12 mm Resolute drug-eluting stent with excellent results. Then I moved to the LAD. With th e same wire did IVUS and determined a mid LAD very long segment heavily diseased. We re-dilated and based on the mid vessel size by IVUS and then placed a 3.0 x 38 mm Synergy drug-eluting stent, crosse d the area of long stenosis and then distally there was a mild edge dissection, so placed another 3.0 x 16 mm to cover all the way to a healthy segment. The diagonal 2 branch is a small vessel, however , it is long and it was jailed and there was still some flow, but there is RAFFI-1 flow in it. The toribio robertson had chest pain that responded to nitroglycerin and adenosine. As such at this point, we decide d to conclude the procedure. We removed the guide and the sheath, and used a 6-Greek Angio-Seal wit h good hemostasis. Findings: 1.Left main is normal. 2.LAD: Proximal diffuse 60%, then there is a big diagonal branch that comes off and then there is a second diagonal branch that comes off right next to it and then there is an area of 90% stenosis and then diffuse 80% stent restenosis that is very long, status post successful IVUS guided PCI and then in the distal portion of the LAD, there are luminal irregularities. 3.Ramus intermedius or high OM with proximal 50% stenosis. 4.Left circumflex is nondominant with an OM1 branch in the midportion, 99% stenosis, which is the cu lprit, post successful PCI as above. 5.RCA: Large and dominant proximal diffuse 50% and then luminal irregularities. 6.Normal LVEDP of 7 mmHg. Conclusion: 1.Severe OM and LAD stenosis status post successful PCI as above. 2.Moderate coronary artery disease elsewhere. Plan: 1.Continue Brilinta, aspirin, and high-dose statin. 2.Stress test as an outpatient to evaluate any torque on the RCA or the ramus intermedius. SR/MODL Voice ID: [id number] Report ID: [id number]
[2021-08-07] MEDS: NACHLORIDE 0.45% 1,000 ML IV SCH (00:33)
[2021-08-07 04:58] VITALS: O2SAT 96
[2021-08-07 06:45] LABS: Hematocrit 51.3 % (39.6-49.0); Lymphocytes % 10.6 % (15.3-44.8); MPV 9.4 fL (7.6-11.3); RBC Red Blood Cell Count 5.33 M/uL (4.33-5.43)
[2021-08-07 06:57] LABS: Albumin 3.3 g/dL (3.4-5.0); Bilirubin Total 0.8 mg/dL (0.2-1.0); Potassium 3.8 mmol/L (3.5-5.1)
[2021-08-07] MEDS: INSULIN -REGULAR HUMAN 50 UNIT/0.5 ML ML SQ SCH ×2 (07:30→11:30)
[2021-08-07] MEDS: NIFEDIPINE XL 90 MG TABLET PO SCH (09:00)
[2021-08-07] MEDS ORDERED: ASPIRIN EC 81 MG TAB PO SCH (09:00)
[2021-08-07] MEDS: TICAGRELOR 90 MG TABLET PO SCH (09:41)
[2021-08-07 10:26] LABS: Blood Morphology Comment NOT SEEN (NOT SEEN); Platelet Estimate ADEQ
[2021-08-07 11:26] LABS: Hematocrit 50.2 % (39.6-49.0); MPV 9.3 fL (7.6-11.3); RBC Red Blood Cell Count 5.17 M/uL (4.33-5.43)
[2021-08-07 11:54] VITALS: BP 129/71; TEMP 98.6
--- NOTE | 2021-08-07 13:35 | P.DS ---
Admission Date: 08/05/21 Discharge Date: 08/07/21 Disposition: ROUTINE DISCHARGE Discharge Condition: FAIR Reason for Admission: Syncope Brief History of Present Illness: Reason for admission: Syncope History of Present Illness: 65-year-old male with history of hypertension, ADD, TIA, diabetes mellitus type 2 presents emergency department for syncopal event. Patient was at home with his and family having a few glasses of wine when he had a syncopal episode with loss of consciousness that lasted between 15 and 20 seconds. Patient reports feeling very weak prior to onset but denied any chest pain, palpitations, headache or other symptoms he became diaphoretic and slumped over family attempted some chest compressions in seated position he recovered and by time EMS arrived had another episode lasting another 15 to 20 seconds. Bystanders on scene reportedly could not locate radial pulse during episode. Patient was evaluated emergency department with CT head was negative for acute findings his labs were remarkable for mild leukocytosis elevated alcohol level and renal insufficiency EKG demonstrated right bundle branch block which is not new. Patient does take stimulant for ADD and did take a dose today. ED provider wishes to admit under observation for syncope evaluation. Allergies No Known Allergies Allergy (Unverified 09/16/15 16:34) Home Medications: Clopidogrel Bisulfate [Plavix*] 75 mg PO DAILY 09/16/15 Metoprolol Tartrate [Lopressor] 100 mg PO DAILY 09/16/15 NIFEdipine [Adalat cc] 90 mg PO DAILY 09/16/15 - Past Medical/Surgical History Diabetic: No -: cva -: HTN -: ADD -: knee surgery Hospital Course: Hospital course Patient was admitted for syncope with unclear loss of pulsation. prior to EMS arrival , spouse repeort CPR was done . On admission he was placed on telemetry. No arrhythmia was noted on telemetry. His blood pressure remained stable. His cardiac enzymes trending upwards to the 6800. He had cardiac angiogram done with findings of 2 vessels disease -which were stented. he was started on Brilinta and Aspirin .His intermittent chest pain resolved . He is ambulatory with nor ecurrence of symptoms . Since patient is currently stable he will be discharged home today to follow-up with cardiology Dr. Alarcon in 3-5 days for the event monitor and possible stress Cardiac angiogram finding- IVUS of LAD. -PCI of severe mid OM1 stenosis, that is the culprit 99%, used 2.5 x 12 mm Synergy drug-eluting stent. -PCI of mid LAD using a 3.0 x 38 mm Synergy drug-eluting stent and distally anot her 3.0 x 16 mm Synergy drug-eluting stent overlapped together. - Physical Exam General: Alert, In no apparent distress, Oriented x3 HEENT: Atraumatic, PERRLA, Mucous membr. moist/pink, EOMI, Sclerae nonicteric Neck: Supple, 2+ carotid pulse no bruit, No LAD, Without JVD or thyroid abnormality Respiratory: Clear to auscultation bilaterally, Normal air movement Cardiovascular: Regular rate/rhythm, Normal S1 S2 Capillary refill: <2 Seconds Gastrointestinal: Normal bowel sounds, No tenderness Musculoskeletal: No tenderness Integumentary: No rashes Neurological: Normal speech, Normal strength at 5/5 x4 extr, Normal tone, Normal affect Vital Signs/Physical Exam: Temp Pulse Resp BP Pulse Ox 98.6 F 82 18 129/71 98 08/07/21 11:54 08/07/21 11:54 08/07/21 11:54 08/07/21 11:54 08/07/21 11:54 Laboratory Data at Discharge: WBC 15.9 K/uL (4.3-10.9) H D 08/07/21 11:18 Hgb 16.6 g/dL (13.6-17.9) 08/07/21 11:18 Hct 50.2 % (39.6-49.0) H 08/07/21 11:18 Plt Count 228 K/uL (152-406) 08/07/21 11:18 PT 11.3 SECONDS (9.5-12.5) 08/06/21 07:07 INR 1.03 08/06/21 07:07 APTT 33.8 SECONDS (24.3-36.9) 08/06/21 07:07 Sodium 136 mmol/L (136-145) 08/07/21 06:24 Potassium 3.8 mmol/L (3.5-5.1) 08/07/21 06:24 BUN 15 mg/dL (7-18) 08/07/21 06:24 Creatinine 0.91 mg/dL (0.55-1.3) 08/07/21 06:24 Glucose 146 mg/dL (74-106) H 08/07/21 06:24 Total Bilirubin 0.8 mg/dL (0.2-1.0) 08/07/21 06:24 AST 320 U/L (15-37) H* D 08/07/21 06:24 ALT 79 U/L (12-78) H 08/07/21 06:24 Alkaline Phosphatase 58 U/L (45-117) 08/07/21 06:24 Home Medications: NIFEdipine [Adalat cc] 90 mg PO DAILY 09/16/15 Anastrozole 0.5 mg PO DAILY 08/05/21 Glipizide [Glipizide Xl] 5 mg PO BID 08/05/21 Methylphenidate HCl [Methylphenidate ER] 27 mg PO DAILY 08/05/21 Aspirin [Aspirin EC 81 MG] 81 mg PO DAILY #30 tablet. 08/07/21 Ticagrelor [Brilinta*] 90 mg PO BID #60 tablet 08/07/21 New Medications: Aspirin [Aspirin EC 81 MG] 81 mg PO DAILY #30 tablet. Ticagrelor [Brilinta*] 90 mg PO BID #60 tablet Diet: ADA Activity: Ad nisa Followup: Ruddy Trejo DO [Primary Care Provider] - 1-2 Weeks (call for apointment ) Johnson Smith MD [ACTIVE - CAN ADMIT] - 1-2 Weeks (call for apointment) Time spent managing pt's care (in minutes): 35
--- NOTE | 2021-08-07 22:16 | PN ---
Date of Progress Note: 08/07/2021 Subjective: Seen by bedside. Chest pain free since yesterday like 2 hours postprocedure became ches t pain-free and felt much better. He denies having any shortness of breath. No nausea, vomiting, or diarrhea. No other complaints. Review of Systems: There is no chest pain, shortness of breath, orthopnea, cough, nausea, vomiting, or diarrhea. No oth er symptoms. All other systems were reviewed and they were negative. Physical Examination: Vital Signs: Reviewed. Head and Neck: Pupils are equal and reactive to light. Intact eye movements. No JVD. No cervical lymphadenopathy. Neck is supple. Thyroid is not enlarged. Lungs: Clear to auscultation bilaterally. No rhonchi, wheezing, or crackles. No accessory muscle u se. Heart: Regular rate and rhythm. No extra sounds. Abdomen: Soft, nontender. Bowel sounds positive. No organomegaly. No masses or hernia. No rigidi ty or rebound. Extremities: No edema, clubbing, or cyanosis. Intact pulses. Skin: No rashes. Neurologic: Alert, awake, and oriented x3. No acute events appreciated. Investigations: Labs were reviewed. Assessment And Recommendations: [id number] myocardial infarction, status post successful percu taneous coronary intervention of the left anterior descending. Diagonal branch small in size was socorro led. It caused chest pain transiently and this is resolved, likely the branch is open. At the [facility], the patient is completely asymptomatic. Also, he is status post percutaneous coronary interventio n of the left circumflex, which was also 99% occluded. At this point, recommend to continue Brilinta , aspirin, high-dose statin, and okay for my standpoint for discharge. Follow up with me in one week post discharge. Also to discharge on metoprolol 50 mg twice a day and I stressed to the patient and to the family the importance of taking Brilinta and aspirin daily as prescribed and gave him a handw ritten prescription. We will arrange for the patient to see me in the office in one week and we will plan for doing an echocardiogram as well as an exercise nuclear stress test to further evaluate his right coronary artery, which is very large vessel with about 50% proximal stenosis. SR/MODL Voice ID: [id number] Report ID: [id number]
== END 2021-08-07 15:21 | disposition home or self-care (01) | DRG 247 ==
LOC: ER 00:19 → ERHOLD 03:47 → OBSVTOIN 12:28 → ERHOLD 15:03 → 4TH 21:51
PROVIDERS: ADMIT Internal Medicine; ATTEND Internal Medicine
PROC: 027136Z Dilation of Coronary Artery, Two Arteries with Three Drug-eluting Intraluminal Devices, Percutaneous Approach (ICD-10-PCS; principal; 2021-08-06)
PROC: B240ZZ3 Ultrasonography of Single Coronary Artery, Intravascular (ICD-10-PCS; 2021-08-06)
PROC: 4A023N7 Measurement of Cardiac Sampling and Pressure, Left Heart, Percutaneous Approach (ICD-10-PCS; 2021-08-06)
PROC: B2011ZZ Plain Radiography of Multiple Coronary Arteries using Low Osmolar Contrast (ICD-10-PCS; 2021-08-06)
DX: I21.4 Non-ST elevation (NSTEMI) myocardial infarction (principal); R55 Syncope and collapse; I10 Essential (primary) hypertension; E11.9 Type 2 diabetes mellitus without complications; F98.8 Other specified behavioral and emotional disorders with onset usually occurring in childhood and adolescence; N28.9 Disorder of kidney and ureter, unspecified; F17.210 Nicotine dependence, cigarettes, uncomplicated; Z86.73 Personal history of transient ischemic attack (TIA), and cerebral infarction without residual deficits; Z20.822 Contact with and (suspected) exposure to COVID-19
CPT/HCPCS: 36415; 70450; 71045; 72125; 76937; 80048; 80053; 80307; 80320; 81003; 81015; 82550; 82947; 84439; 84443; 84484; 85025; 85027; 85347; 85610; 85730; 87086; 87088; 87804; 92928; 93005; 93306; 93454; 99285; C1725; C1760; C1893; G0269; G0378; J0153; J1644; J1650; J2250; J3010; J3480; J7030; J7040; Q9967; U0003